=== PATIENT | female | born 1965 | race Caucasian/White ===

== ENCOUNTER → 2020-10-26 | Day surgery (SDC) | payer OTHER ==
[~2020-10-26] MED LIST: ABILIFY5 MG PO; AMLODIPINE BESYL5 MG PO; ATORVASTATIN CA20 MG PO; CARVEDILOL12.5 MG PO; CYMBALTA30 MG PO; HYDROXYZINE HCL50 MG PO; OR PHACO EYE KIT ONE; PREOP PHACO EYE KIT ONE; TRAZODONE HCL100 MG PO
[2020-10-26 12:20] VITALS: BP 141/67
== END | disposition home or self-care (01) ==
LOC: OR 08:32
PROVIDERS: ATTEND Ophthalmology
DX: H25.11 Age-related nuclear cataract, right eye (principal); K21.9 Gastro-esophageal reflux disease without esophagitis; I10 Essential (primary) hypertension; E78.5 Hyperlipidemia, unspecified; F32.9 Major depressive disorder, single episode, unspecified; F17.210 Nicotine dependence, cigarettes, uncomplicated; Z88.0 Allergy status to penicillin; Z01.812 Encounter for preprocedural laboratory examination; Z20.822 Contact with and (suspected) exposure to COVID-19
CPT/HCPCS: 66984; U0002; V2788

== ENCOUNTER → 2020-11-09 | Day surgery (SDC) | payer OTHER ==
[~2020-11-09] MED LIST changes: +FENTANYL CITRATE/PF 100MCG/2 ML INJ ONE; +MIDAZOLAM HCL 2 MG/2 ML VIAL ONE
[2020-11-09 13:10] VITALS: BP 120/71
== END | disposition home or self-care (01) ==
LOC: OR 10:56
PROVIDERS: ATTEND Ophthalmology
DX: H25.12 Age-related nuclear cataract, left eye (principal); I10 Essential (primary) hypertension; E78.5 Hyperlipidemia, unspecified; F32.9 Major depressive disorder, single episode, unspecified; Z01.812 Encounter for preprocedural laboratory examination; Z20.822 Contact with and (suspected) exposure to COVID-19; Z88.0 Allergy status to penicillin; K50.90 Crohn's disease, unspecified, without complications; F17.200 Nicotine dependence, unspecified, uncomplicated; E03.9 Hypothyroidism, unspecified
CPT/HCPCS: 66984; J2250; J3010; U0002